=== PATIENT | male | born 1995 | race African-American/Black ===

== ENCOUNTER 2016-09-05 18:20 | Emergency (ER) | payer SELFPAY | END 2016-09-05 18:30 | disposition home or self-care (01) | LOC: ER 18:20 | PROC: 2W3CX1Z Immobilization of Right Lower Arm using Splint (ICD-10-PCS; principal; 2016-09-05) | DX: S62.344A Nondisplaced fracture of base of fourth metacarpal bone, right hand, initial encounter for closed fracture (principal); W22.01XA Walked into wall, initial encounter | CPT/HCPCS: 73110-RT; 73130-RT; 99284 ==